=== PATIENT | male | born 1990 | race Two or more races ===

== ENCOUNTER 2018-11-16 16:14 | Emergency (ER) | payer OTHER ==
[~2018-11-16] VITALS: Ht 165.1 cm; Wt 81.6 kg
[2018-11-16 16:42] VITALS: BP 135/78
[2018-11-16] MEDS ORDERED: LIDOCAINE WITH 8.4% SOD BICARB 3 ML DISP.SYRIN. INJ ONE (16:45)
--- NOTE | 2018-11-16 17:44 | PHYS DOC ---
Past Medical History Past Medical History: No Pertinent History Past Surgical History: No Surgical History Alcohol Use: Occasionally Drug Use: None Adult General Chief Complaint Chief Complaint: LACERATION/AVULSION HPI HPI Patient is a 28 year old male who presents with right salazar laceration, patient states his right salazar got caught on a framing band. Review of Systems Review of Systems Constitutional: Denies fever or chills [] Musculoskeletal: Denies back pain or joint pain [] Integument: Right salazar laceration Neurologic: Denies headache, focal weakness or sensory changes [] All other systems were reviewed and found to be within normal limits, except as documented in this note. Current Medications Current Medications Current Medications Medications (Trade) Dose Ordered Sig/Luisa Start Time Stop Time Status Last Admin Dose Admin Lidocaine/Sodium Bicarbonate (Buffered Lidocaine 1%) 3 ml 1X ONCE 11/16/18 16:45 11/16/18 16:46 DC 11/16/18 17:21 3 ML Allergies Allergies Allergies Coded Allergies Type Severity Reaction Last Updated Verified No Known Drug Allergies 11/16/18 No Physical Exam Physical Exam Constitutional: Well developed, well nourished, no acute distress, non-toxic appearance. [] Skin: Right salazar with a vertical laceration approximately 5 cm long, this no obvious tendon involvement. Full range of motion to the right lower extremity. +2 right pedal pulse. Cap refill less than 2 seconds the right lower extremity. Back: No tenderness, no CVA tenderness. [] Extremities: No tenderness, no cyanosis, no clubbing, ROM intact, no edema. [] Neurologic: Alert and oriented X 3, normal motor function, normal sensory function, no focal deficits noted. [] Psychologic: Affect normal, judgement normal, mood normal. [] Current Patient Data Vital Signs Vital Signs Date Time Temp Pulse Resp B/P (MAP) Pulse Ox O2 Delivery O2 Flow Rate FiO2 11/16/18 16:42 99.1 55 20 135/78 (97) 99 Room Air 99.1 EKG EKG [] Radiology/Procedures Radiology/Procedures Laceration/Wound Repair Wound Location: Right salazar Wound's Depth, Shape: Vertical Wound Length (cm): Approximately 5 cm Wound Explored: clean Irrigated w/ Saline (ccs): 250 Betadine Prep?: Yes Anesthesia: 1% buffered lidocaine Volume Anesthetic (ccs): Approximately 4 mL Wound Repaired With: Vicryl Suture Size/Type: 3.0/interrupted suture Number of Sutures: 10 Progress : Wound was covered with nonstick dressing Course & Med Decision Making Course & Med Decision Making Pertinent Labs and Imaging studies reviewed. (See chart for details) []This is a 28-year-old male patient presenting to the ED today with right salazar laceration that was closed with dissolvable sutures. Wound care instructions and return precautions provided. Tetanus up-to-date Dragon Disclaimer Dragon Disclaimer This electronic medical record was generated, in whole or in part, using a voice recognition dictation system. Departure Departure Impression: Primary Impression: Laceration of right lower extremity Disposition: HOME, SELF-CARE Condition: STABLE Referrals: UNKNOWN PCP NAME (PCP) Follow up with your own doctor as needed Patient Instructions: Laceration Care, Adult, [id number] Additional Instructions: You have laceration to the right lower extremity that was closed with dissolvable sutures, they will follow fall off and disappear in 1-2 weeks. Keep the area clean and dry. You can shower. Apply Neosporin to the area twice a day for 7 days. Monitor the area for any signs of infection including but not li mited to increased redness, warmth, yellow drainage from the area and return to the ED if they occur. Problem Qualifiers Primary Impression: Laceration of right lower extremity Encounter type: initial encounter Qualified Codes: S81.811A - Laceration without foreign body, right lower leg, initial encounter JEREMIAS MATHEW APRN Nov 16, 2018 17:44
== END 2018-11-16 18:14 | disposition home or self-care (01) ==
LOC: ER 16:14
DX: S81.811A Laceration without foreign body, right lower leg, initial encounter (principal); W23.0XXA Caught, crushed, jammed, or pinched between moving objects, initial encounter; Y93.89 Activity, other specified; Y92.89 Other specified places as the place of occurrence of the external cause; Y99.8 Other external cause status
CPT/HCPCS: 12001; 12002; 99283